=== PATIENT | male | born 2000 | race Caucasian/White ===

== ENCOUNTER 2021-03-20 17:10 | Emergency (ER) | payer OTHER, SELFPAY ==
--- NOTE | 2021-03-20 17:30 | DI.CT_ITS ---
Exam(s) CT CHEST W EXAM: CT CHEST W CLINICAL HISTORY: snowboard 10ft drop to head, neck, chest , R clavi. TECHNIQUE: Multi planar reconstructions were performed. CONTRAST MATERIAL: Omnipaque 350; 70 cc COMPARISON: No exams were available for comparison FINDINGS: CHEST: LUNGS: No evidence of lung contusion nor pneumothorax. No pleural effusions. No incidental nodules. No significant focal findings in trachea and mainstem bronchi. MEDIASTINUM: No evidence of mediastinal hematoma. No evidence of pneumomediastinum. No evidence of sternal fracture. Fracture of the the right clavicle midshaft level noted, nondisplaced. No AC join t diastasis. Visualized thyroid unremarkable.No incidental mediastinal nor hilar adenopathy. No axi llary adenopathy. CARDIAC: Heart size is normal. There is no pericardial effusion.Caliber thoracic aorta is within nor mal limits. No evidence of obvious significant aortic trauma. No dissection evident. VISUALIZED UPPER ABDOMEN:No evidence of ascites, hepatic nor splenic laceration nor renal laceration. Entire right kidney and the most inferior aspect of the liver not included in the field of view of this chest study. There is no ascites. Visualized upper abdominal aorta appears unremarkable, this included down to just below the renal arteries. No incidental adrenal findings. OSSEOUS: There is a nondisplaced midshaft fracture of the right clavicle. AC joint and sternoclavicu lar joints appear unremarkable. Left clavicle unremarkable. No scapular fractures. Coracoid proces s is are intact. There are no rib fractures and there are no vertebral fractures in the thoracic spi nal column and upper 3 lumbar vertebrae which are included in the field of view of this chest study. IMPRESSION: 1. There is a nondisplaced midshaft fracture of the right clavicle. No other fractures identified in the field of view of this study. 2. No evidence of lung contusion, pneumothorax, pneumomediastinum nor other intrathoracic findings of significance. 3. Also no significant findings in the partially visualized upper abdomen, as described above. RADIATION DOSE DELIVERED: 645.76mGy.cm Total DLP DATA REPOSITORY: All CT scans at this facility are submitted to the National Radiology Data Registry (NRDR) Dose Index Registry (DIR) with the [employer] ([employer]). RADIATION OPTIMIZATION: All CT scans at this facility use at least one of these dose optimization te chniques: automated exposure control; mA and/or kV adjustment per patient size (includes targeted exa ms where dose is matched to clinical indication); or iterative reconstruction.
--- NOTE | 2021-03-20 17:30 | DI.CT_ITS ---
Exam(s) CT HEAD CERVICAL SPINE WO EXAM: CT HEAD CERVICAL SPINE WO CLINICAL HISTORY: snowboard 10ft drop to head, neck, chest , R clavi. TECHNIQUE: Imaging Protocol: Axial computed tomography images with coronal and sagittal reformatted images were created and reviewed COMPARISON: No exams were available for comparison FINDINGS: BRAIN: There are no skull fractures nor fluid in the visualized paranasal sinuses. There is no evidence of intracranial hemorrhage, mass effect, or shift of midline structures. There are no extra-axial fluid collections. The ventricles are not enlarged or shifted and there is no blo od within the ventricular system nor within the basal cisterns. CERVICAL SPINE: There is no evidence of fracture nor listhesis. No significant prevertebral soft tissue swelling. There is no significant facet joint malalignment. No significant osseous lesions evident. IMPRESSION: No acute intracranial findings on this noninfused CT scan of the brain. No evidence of cervical spine fracture, malalignment, nor acute compromise of the cervical spinal can al. RADIATION DOSE DELIVERED: 1,333.06mGy.cm Total DLP DATA REPOSITORY: All CT scans at this facility are submitted to the National Radiology Data Registry (NRDR) Dose Index Registry (DIR) with the [employer] ([employer]). RADIATION OPTIMIZATION: All CT scans at this facility use at least one of these dose optimization te chniques: automated exposure control; mA and/or kV adjustment per patient size (includes targeted exa ms where dose is matched to clinical indication); or iterative reconstruction.
[2021-03-20 17:34] VITALS: BP 135/84; PULSE 72; RESP 22; TEMP 36.7; O2SAT 99
[2021-03-20] MEDS: ACETAMINOPHEN 1,000 MG/100 ML BTL 400 MG IVPB (18:17)
--- NOTE | 2021-03-20 18:20 | ED.GENADUL_ITS ---
Discharge Plan Disposition Patient Disposition: HOME Condition: Good Discharge Details Clinical Impression: Closed fracture of right clavicle, Fall ED Provider: Jn Rose Discharge Instructions Instructions: Clavicle Fracture (ED) Additional Instructions: Please keep the sling on for the next 1 to 2 weeks. Follow-up closely with your provider at your [facility]. Take 800 mg of ibuprofen every 6 hours and 1000 mg of Tylenol every 6 hours as needed for pain. Make sure to keep icing the right clavicle. Make sure after 2 to 3 days of being in the sling with no movement that you begin to slowly and carefully move your shoulder to prevent any frozen shoulder syndrome. Please make sure to have your shoulder reevaluated by your medical practitioner before you stop using the sling. If you notice any worsening of your symptoms, or any new symptoms such as vomiting, diarrhea, fever, chills, shortness of breath, chest pain, numbness, weakness, or fainting , please return immediately to the emergency department for reevaluation. Please follow up with your primary care provider as soon as possible for reassessment and reevaluation. As always, it was a pleasure participating in your medical care today. Medical Decision Making 20-year-old male with no significant past medical history who presents today for evaluation of neck pain head pain and right shoulder pain. Patient was skiing off a homemade jump, went 10 feet in the air and fell and dropped upside down onto his right shoulder and head neck. He was wearing his helmet. He denies loss of consciousness. When he landed he immediately had pain in his right clavicle, as well as his back and neck and right chest. He admits to pain with breathing. He denies any numbness or tingling. He denies any other pain. He does have a history of concussion in the. No other complaints at this time. No other modifying factors. Physical exam demonstrates notable right clavicle pain, right chest wall pain. Bedside ultrasound shows good lung sliding. Patient does have midline cervical spine pain at around 5, but it is mild. Concern with a notable site of the fall for intrathoracic head and neck trauma. We will get CT scan of the head neck and chest. We will give NSAIDs for pain control. Will monitor closely and reassess. 6:[address] scan of the head neck and chest demonstrate evidence of right clavicle fract ure but no other significant acute traumatic process per virtual radiology. Pain controlled with ice NSAIDs and sling. Repeat neurologic exam is unremarkable. Repeat neurovascular exam in the right distal extremity is normal. Patient stable for discharge. No tenderness over the head of the humerus on reassessment or the humerus itself. He does have some mild pain with movement still which she states radiates to the right clavicle. Will discharge with sling, close follow-up with his practitioner at his [employer]. Discussed red flags which to return. I have extensively reviewed the treatment plan and discharge instructions with the patient and their family. I have addressed all patient concerns at this time. The patient and family was made aware of what symptoms to monitor for that would warrant a return to the emergency department. Discussed the plan with the patient and family, they demonstrate verbal understanding and agreement with our assessment and plan at this time. The doc umentation in this chart was dictated using [employer] dictation software. Please excuse any dictation errors. FINDINGS: Lungs: No significant traumatic pathology in the lungs. No consolidation or gr ound-glass disease. Pleural spaces: No pneumothorax. No pleural effusion. Heart: No cardiomegaly. No pericardial effusion. Aorta: No aortic aneurysm. Lymph nodes: No enlarged lymph nodes. Bones/joints: Acute nondisplaced fracture right clavicular diaphysis. The remaining osseous structures appear intact. Soft tissues: No suspicious lesions. IMPRESSION: Acute nondisplaced fracture right clavicular diaphysis. No other acute or traumatic pathology is seen. Thank you for allowing us to participate in the care of your patient. Dictated and Authenticated by: Ilana Alexander MD 03/20/2021 6:20 PM Eastern Time ([place] & [place]) HPI General Date/Time Provider Initiated Documentation: 03/20/21 17:41 . HPI Narrative: 20-year-old male with no significant past medical history who presents today for evaluation of neck pain head pain and right shoulder pain. Patient was skiing off a homemade jump, went 10 feet in the air and fell and dropped upside down onto his right shoulder and head neck. He was wearing his helmet. He denies loss of consciousness. When he landed he immediately had pain in his right clavicle, as well as his back and neck and right chest. He admits to pain with breathing. He denies any numbness or tingling. He denies any other pain. He does have a history of concussion in the. No other complaints at this time. No other modifying factors. Related Data Allergies Allergy/AdvReac Type Severity Reaction Status Date / Time No Known Allergies Allergy Unverified 03/20/21 17:41 General Stated Complaint: Trauma RUBINA: 2 Review of Systems All systems reviewed & are unremarkable except as noted in HPI and below PFSH All Active Problems (Updated 03/20/21 @ 18:36 by Jn Rose DO) Closed fracture of right clavicle (Acute) Fall (Acute) Social History Smoking/Tobacco Use Status: Never Smoking risk assessment performed?: Yes Alcohol Intake: current Alcohol Intake frequency: holidays/special occasions only Substance use type: does not use Do you feel safe at home: Yes Do you feel safe in your relationship?: Yes Exam Narrative Exam Narrative: 1.Const: Well-nourished, Well-developed, appearing stated age 2.Eyes: PERRL, no conjunctival injection, and symmetrical lids. 3.ENT: Atraumatic external nose and ears. Moist MM. Neck: Symmetric, trachea midline, No thyromegaly. There is no evidence of raccoon eyes, agudelo sign, CSF rhinorrhea, mastoid tenderness, cranial crepitus, hemotympanum, exophthalmos, or hyphema. Patient demonstrates intact dentition with no signs of tooth avulsion or fracture, no signs of jaw deformity, no evidence of a LeFort's fracture, with an intact palate, nose and orbital region. There is no evidence of a nasal septal hematoma. No proptosis. Jaw closes symmetrically. Airway is clear. 4.CVS: Regular rate and rhythm, Normal s1 and s2. No murmurs, carotid bruits, rubs, or gallops. Radial pulses 2+ bilaterally and symmetric. Dorsalis pedis pulses 2+ bilaterally and symmetric. 2+ capillary refill. No evidence of distant heart sounds. No extremity edema. No evidence of gross hemorrhage. 5.RESP: Airway clear, no obstructions. No abrasions or ecchymosis. Chest movement symmetric with respirations. Notable right upper chest wall tender ness. Trachea midline. No crepitus. No step offs. No paradoxical movements. Lungs are clear to auscultation bilaterally. No rales, rhonchi, wheezing or stridor. Breath sound symmetric. No Sucking chest wounds. 6.GI: Soft, nondistended, nontender. Bowel tones normoactive. No masses or organomegaly. No ecchymosis or abrasions. No periumbilical ecchymosis or seatbelt sign. No flank or CVA tenderness. No clinical signs of significant trauma. Genital Exam: Intact and traumatically unremarkable genital and rectal exam with no significant bruising, blood, or deformity. Rectal tone normal, stool without gross blood. No clinical evidence of significant abdominal trauma. 7.MSK: No gross deformities or discolorations or lesions. Patient has notable tenderness over the right clavicle, but no tenderness over the right or left arms. Notable tenderness over the right upper chest wall. Patient able to move left upper extremity normal without any restrictions. Right upper extremity is slightly limited movement secondary to pain in the clavicle. All compartments of upper and lower extremities are soft with no tenderness. Vascular exam demonstrates brisk capillary refill and intact pulses in all extremities. Pelvic exam demonstrates a stable pelvis, nontender to lateral compression and palpation of symphysis pubis.. No clinical evidence of significant musculoskeletal trauma. Patient does demonstrate minimal point tenderness over 5, no midline tenderness over thoracic or lumbar spine. 8.Skin: Warm, Dry. No rashes or lesions. 9.Neuro: sugar drier II-XII grossly intact. Sensation grossly intact, no focal neurologic deficits. 10.Psych: (AAO) x3. Appropriate mood and affect Course Vital Signs Vital signs: Vital Signs Temperature 36.7 C 03/20/21 17:34 Pulse 72 03/20/21 17:34 Respiratory Rate 03/20/21 17:34 Blood Pressure 135/84 03/20/21 17:34 Pulse Oximetry 99 03/20/21 17:34 Temperature 36.7 C 03/20/21 17:34 Temperature Source Temporal Artery Scan 03/20/21 17:34 Pulse 72 03/20/21 17:34 Respiratory Rate 22 03/20/21 17:34 Respiratory Effort 03/20/21 17:42 Blood Pressure 135/84 03/20/21 17:34 Blood Pressure Position Sitting 03/20/21 17:34 Pulse Oximetry 99 03/20/21 17:34 Oxygen Delivery Method Room Air 03/20/21 17:34 Oxygen Flow Rate 0 03/20/21 17:34 Pain Level 10 03/20/21 17:34
--- NOTE | 2021-03-20 18:20 | DI.VRAD_ITS ---
PROCEDURE INFORMATION: Exam: CT Chest With Contrast; Diagnostic Exam date and time: 03/20/2021 17:43 Age: 20 years old Clinical indication: Other: Snowboard 10ft drop to head, neck, chest , R clavi TECHNIQUE: Imaging protocol: Diagnostic computed tomography of the chest with contrast. 3D rendering (Not supervised by radiologist): MIP and/or 3D reconstructed images were created by the technologist. Radiation optimization: All CT scans at this facility use at least one of these dose optimization techniques: automated exposure control; mA and/or kV adjustment per patient size (includes targeted exams where dose is matched to clinical indication); or iterative reconstruction. Contrast material: OMNIPAQUE; Contrast volume: 70 ml; Contrast route: INTRAVENOUS (IV); COMPARISON: CT HEAD CERVICAL SPINE WO 03/20/2021 18:00 FINDINGS: Lungs: No significant traumatic pathology in the lungs. No consolidation or ground-glass disease. Pleural spaces: No pneumothorax. No pleural effusion. Heart: No cardiomegaly. No pericardial effusion. Aorta: No aortic aneurysm. Lymph nodes: No enlarged lymph nodes. Bones/joints: Acute nondisplaced fracture right clavicular diaphysis. The remaining osseous structures appear intact. Soft tissues: No suspicious lesions. IMPRESSION: Acute nondisplaced fracture right clavicular diaphysis. No other acute or traumatic pathology is seen. Dictated and Authenticated by: Ilana Alexander MD. Ordering:SINDHU Ragsdale MD
--- NOTE | 2021-03-20 18:21 | DI.VRAD_ITS ---
PROCEDURE INFORMATION: Exam: CT Head Without Contrast Exam date and time: 03/20/2021 5:43 PM Age: 20 years old Clinical indication: Other: Snowboard 10ft drop to head, neck, chest , R clavi TECHNIQUE: Imaging protocol: Computed tomography of the head without contrast. Radiation optimization: All CT scans at this facility use at least one of these dose optimization techniques: automated exposure control; mA and/or kV adjustment per patient size (includes targeted exams where dose is matched to clinical indication); or iterative reconstruction. COMPARISON: No relevant prior studies available. FINDINGS: Brain: Normal. No hemorrhage. Unremarkable white matter. No mass effect. Cerebral ventricles: No ventriculomegaly. Paranasal sinuses: Visualized sinuses are unremarkable. No fluid levels. Mastoid air cells: Visualized mastoid air cells are well aerated. Bones/joints: Unremarkable. No acute fracture. Soft tissues: Unremarkable. IMPRESSION: No evidence for acute intracranial abnormality. PROCEDURE INFORMATION: Exam: CT Cervical Spine Without Contrast Exam date and time: 03/20/2021 5:43 PM Age: 20 years old Clinical indication: Other: Snowboard 10ft drop to head, neck, chest , R clavi TECHNIQUE: Imaging protocol: Computed tomography images of the cervical spine without contrast. Radiation optimization: All CT scans at this facility use at least one of these dose optimization techniques: automated exposure control; mA and/or kV adjustment per patient size (includes targeted exams where dose is matched to clinical indication); or iterative reconstruction. COMPARISON: No relevant prior studies available. FINDINGS: Bones/joints: No acute fracture. Normal alignment. Discs/Spinal canal/Neural foramina: No significant disc protrusion. No severe spinal canal stenosis. No significant neural foraminal narrowing. Lungs: Lung apices are normal. Soft tissues: Unremarkable. IMPRESSION: No evidence for acute posttraumatic abnormality. Dictated and Authenticated by: Radha Sutton MD. Ordering:SINDHU Ragsdale MD
[2021-03-20 18:32] VITALS: BP 123/77; PULSE 80; RESP 20; TEMP 36.7; O2SAT 98
[2021-03-20 18:53] VITALS: BP 123/77; PULSE 80; RESP 20; TEMP 36.7; O2SAT 98
[2021-03-20] MEDS: Omnipaque 350 MG/ML 100 ML BTL IV (18:56)
[2021-03-20] MEDS: Normal Saline Flush 10 ML SYR IVP (18:57)
== END 2021-03-20 18:59 | disposition home or self-care (01) ==
PROVIDERS: Emergency Provider Student in an Organized Health Care Education/Training Program; PCP Internal Medicine
DX: S42.001A Fracture of unspecified part of right clavicle, initial encounter for closed fracture (principal); V00.321A Fall from snow-skis, initial encounter; W17.89XA Other fall from one level to another, initial encounter; M54.2 Cervicalgia; R51.9 Headache, unspecified; R07.89 Other chest pain
CPT/HCPCS: 96374; 99285; 70450; 71260; 72125; 99283; J0131; J3490